=== PATIENT | male | born 1995 | race Caucasian/White ===

== ENCOUNTER 2016-09-30 13:52 | Emergency (ER) | payer SELFPAY ==
--- NOTE | 2016-10-07 13:37 | ER ---
ADMIT: 09/30/2016 RM/LOC: ER [facility] MR#: [id number] [address] [id number] KVNG GUTIERREZ [address] [place] [address] Emergency Room Report SEX: M AGE: 21 : 1995 DATE: 09/30/2016 ADDENDUM: This patient comes to the ER because he got a fish hook caught in his left big toe. I used the string technique and was able to remove without any difficulty. Please see my T-sheet. MONI Torres / Cl Sauceda MD / ethan JOB #: [id number] CC: Cl Sauceda MD, Attending Physician Vu Edgar MD, Family Physician
== END 2016-09-30 14:38 | disposition home or self-care (01) ==
LOC: ER 13:52
DX: S90.452A Superficial foreign body, left great toe, initial encounter (principal); F17.210 Nicotine dependence, cigarettes, uncomplicated; F31.9 Bipolar disorder, unspecified; Z79.899 Other long term (current) drug therapy; W45.8XXA Other foreign body or object entering through skin, initial encounter